=== PATIENT | male | born 1950 | race Caucasian/White ===

== ENCOUNTER 2016-05-30 11:24 | Day surgery (SDC) | payer MEDICARE ==
[~2016-05-30] VITALS: Ht 180.3 cm; Wt 90.8 kg
[2016-05-30] VITALS (8 sets, daily range): BP systolic 116–148; BP diastolic 73–84; PULSE 55–68; RESP 16–18; TEMP 97.7–98.6; O2SAT 95–99
[~2016-05-30 11:24] MED LIST: AMBI10TA PO; ASPI81 PO; ATOR40TA49 PO; CARV6.252 PO; CEFP250S PO; HYDR7.5S PO; IMDU30TA PO; LORA-392 PO; NITR0.4S SL; OMEP20CA5 PO; PRIN5TAB PO; RANO500 PO; RIVA20 PO; SPIR25TA PO
[2016-05-30] MEDS ORDERED: POVIDONE IODINE 5% (ANTISEPSIS KIT) 4 APPLICATIONS EACH NARE SCH (12:00)
[2016-05-30] MEDS ORDERED: MUPIROCIN 2% OINT 1 APPLIC/GM SYR NASAL SCH (12:00)
[2016-05-30] MEDS ORDERED: ceFAZolin 2 GM PREMIX 50 ML IV SCH (12:00)
[2016-05-30] MEDS ORDERED: CHLORHEXIDINE GLUCONATE 2 % 1 PACK (2 CLOTHS) TOPICAL SCH (12:00)
[2016-05-30] MEDS: NS 1000 ML IV SCH (12:00)
[2016-05-30] MEDS ORDERED: CHLORHEXIDINE GLUCONATE 2 % 1 PACK (2 CLOTHS) TOPICAL PRN (12:15)
[2016-05-30] MEDS ORDERED: POVIDONE IODINE 5% (ANTISEPSIS KIT) 4 APPLICATIONS EACH NARE PRN (12:15)
[2016-05-30] MEDS ORDERED: INSULIN HUMAN REGULAR 1,000 UNITS/10 ML VIAL SQ PRN (12:15)
[2016-05-30] MEDS ORDERED: METOPROLOL TARTRATE 25 MG TAB PO PRN (12:15)
[2016-05-30] MEDS ORDERED: SODIUM CHLORID 0.9% 500 ML IV PRN (12:15)
[2016-05-30] MEDS ORDERED: LACTATED RINGER'S 1000 ML IV PRN (12:15)
[2016-05-30] MEDS ORDERED: ISOS60TA PO (12:22)
[2016-05-30] MEDS ORDERED: ASPI1TAB69 PO (12:22)
[2016-05-30] MEDS ORDERED: CARV6.252 PO (12:22)
[2016-05-30] MEDS ORDERED: AMBI10TA PO (12:22)
[2016-05-30] MEDS ORDERED: NITR0.4S SL (12:22)
[2016-05-30] MEDS ORDERED: XARE20TA PO (12:22)
[2016-05-30] MEDS ORDERED: ALFU10TA2 PO (12:22)
[2016-05-30] MEDS ORDERED: ATOR1TAB18 PO (12:22)
[2016-05-30] MEDS ORDERED: LORA1TAB12 PO (12:22)
[2016-05-30] MEDS ORDERED: LISI-519 PO (12:22)
[2016-05-30] MEDS ORDERED: FINA5TAB2 PO (12:22)
[2016-05-30] MEDS ORDERED: RANO500 PO (12:22)
[2016-05-30] MEDS ORDERED: COQ-100C2 PO (12:22)
[2016-05-30] MEDS ORDERED: RAPA8CAP PO (12:22)
[2016-05-30] MEDS ORDERED: ESZO1TAB PO (12:23)
[2016-05-30 12:30] LABS: AUTOMATED NEUTROPHIL # 4.1 TH/MM3 (1.8-7.7); BASOPHIL % 0.2 % (0.0-2.0); EOSINOPHIL # 0.1 TH/MM3 (0-0.4); EOSINOPHIL % 2.2 % (0.0-4.0); HEMATOCRIT 39.3 % (39.0-51.0); HEMO FLAGS DIFF FINAL; LYMPH % 25.1 % (9.0-44.0); LYMPHOCYTE # 1.7 TH/MM3 (1.0-4.8); MEAN CELL VOLUME 94.6 FL (80.0-100.0); MEAN CORPUSCULAR HEMOGLOBIN 31.9 PG (27.0-34.0); MEAN CORPUSCULAR HGB CONC 33.7 % (32.0-36.0); MONO % 12.8 % (0.0-8.0); NEUT % 59.7 % (16.0-70.0); PLATELET COUNT 193 TH/MM3 (150-450); RED BLOOD COUNT 4.16 MIL/MM3 (4.50-5.90); RED CELL DISTRIBUTION WIDTH 12.7 % (11.6-17.2); WHITE BLOOD COUNT 6.9 TH/MM3 (4.0-11.0)
[2016-05-30 12:43] LABS: APTT (PATIENT) 25.1 SEC (24.3-30.1); PROTHROMBIN TIME - PATIENT 11.1 SEC (9.8-11.6)
[2016-05-30 12:44] LABS: BICARBONATE 25.6 MEQ/L (21.0-32.0); POTASSIUM 4.1 MEQ/L (3.5-5.1)
[2016-05-30] MEDS ORDERED: PROPOFOL 200 MG/20 ML AMP IV ONE (16:22)
[2016-05-30] MEDS ORDERED: LIDOCAINE HCL 2% 50 ML VIAL ONE (16:34)
[2016-05-30] MEDS ORDERED: ceFAZolin INJ 1,000 MG VIAL ONE (16:34)
[2016-05-30] MEDS ORDERED: VANCOMYCIN 500 MG VIAL ONE (16:34)
[2016-05-30] MEDS ORDERED: VANCOMYCIN HCL 1000 MG VIAL ONE (16:34)
[2016-05-30] MEDS ORDERED: MIDAZOLAM HCL 2 MG/2 ML VIAL ONE (16:42)
[2016-05-30] MEDS ORDERED: TEMAZEPAM 15 MG CAP PO PRN (17:45)
[2016-05-30] MEDS ORDERED: MAGNESIUM HYDROXIDE SUSP 30 ML CUP PO PRN (17:45)
[2016-05-30] MEDS ORDERED: ACETAMINOPHEN/CODEINE 300 MG/30 MG TAB PO PRN ×2 (17:45)
[2016-05-30] MEDS ORDERED: ONDANSETRON HCL 4 MG/2 ML VIAL IV PRN (17:45)
[2016-05-30] MEDS ORDERED: ESZOPICLONE 2 MG TAB PO PRN (17:45)
--- NOTE | 2016-05-30 18:26 | RADRPT ---
EXAM DATE/TIME: 05/30/2016 17:52 [place] COMPARISON: No previous studies available for comparison. INDICATIONS : Post pacemaker placement. MEDICAL HISTORY : None. SURGICAL HISTORY : None. ENCOUNTER: Initial ACUITY: 1 day PAIN SCORE: 1/10 LOCATION: Bilateral chest FINDINGS: The lungs are clear without infiltrate, nodule, or mass. There is no appreciable pleural effusion fo r technique. Heart and mediastinum are unremarkable. Left subclavian transvenous pacer wires are pre sent with tips in the right atrium and right ventricle. CONCLUSION: No acute cardiopulmonary disease. Alicia Melchor MD on May 30, 2016 at 18:24 Board Certified Radiologist. This report was verified electronically.
[2016-05-30] MEDS: ATORVASTATIN 80 MG TAB PO SCH (21:20)
[2016-05-30] MEDS: CARVEDILOL 6.25 MG TAB PO SCH (21:21)
[2016-05-30] MEDS: RANOLAZINE 500 MG EXTENDED RELEASE TAB PO SCH (21:21)
[2016-05-30] MEDS: ZOLPIDEM TARTRATE 10 MG TAB PO PRN (21:39)
[2016-05-30] MEDS: LORazepam 1 MG TAB PO PRN (21:39)
[2016-05-30] MEDS: ceFAZolin 2 GM PREMIX 50 ML IV SCH (23:24)
[2016-05-31] VITALS (17 sets, daily range): BP systolic 130–148; BP diastolic 78–90; PULSE 48–71; RESP 16–18; TEMP 98.4–98.5; O2SAT 96–97
[2016-05-31] MEDS: CARVEDILOL 6.25 MG TAB PO SCH ×2 (08:44→21:08)
[2016-05-31] MEDS: ceFAZolin 2 GM PREMIX 50 ML IV SCH ×2 (08:46→16:00)
[2016-05-31] MEDS ORDERED: ASPIRIN EC 81 MG TABEC PO SCH (09:00)
[2016-05-31] MEDS ORDERED: LISINOPRIL 5 MG TAB PO SCH (09:00)
[2016-05-31] MEDS: RANOLAZINE 500 MG EXTENDED RELEASE TAB PO SCH ×2 (09:00→21:08)
[2016-05-31] MEDS ORDERED: NON-FORMULARY DRUG (Coenzyme Q10 (Ubidecarenone) (Coq-10) 100 MG) PO SCH (09:00)
[2016-05-31] MEDS ORDERED: ISOSORBIDE MONONITRATE 60 MG TAB PO SCH (09:00)
[2016-05-31] MEDS ORDERED: FINASTERIDE 5 MG TAB PO SCH (09:00)
[2016-05-31] MEDS ORDERED: TAMSULOSIN HCL 0.4 MG CAP PO SCH (09:00)
[2016-05-31] MEDS ORDERED: NON-FORMULARY DRUG (Silodosin (Rapaflo) 8 MG) PO SCH (09:00)
[2016-05-31] MEDS ORDERED: RIVAROXABAN 20 MG TAB PO SCH (09:00)
--- NOTE | 2016-05-31 10:39 | EKG ---
Date Performed: 05/30/2016 Time Performed: 17:48:32 PTAGE: 65 years EKG: Sinus bradycardia. Left axis deviation IV conduction defect Anteroseptal infarct - age unde termined Low QRS voltages in precordial leads Abnormal ECG Compared to prior tracing no significant c jackelin PREVIOUS TRACING : 05/30/2016 12.27 DOCTOR: Roseline Lam Interpretating Date/Time 05/31/2016 10:33:57
--- NOTE | 2016-05-31 10:39 | EKG ---
Date Performed: 05/30/2016 Time Performed: 12:27:30 PTAGE: 65 years EKG: Sinus bradycardia. Left axis deviation IV conduction defect Anteroseptal infarct - age unde termined Low QRS voltages in precordial leads Abnormal ECG Compared to prior tracing no significant c jackelin PREVIOUS TRACING : 07/23/2013 08.24 DOCTOR: Roseline Lam Interpretating Date/Time 05/31/2016 10:33:49
--- NOTE | 2016-05-31 10:40 | EKG ---
Date Performed: 05/31/2016 Time Performed: 05:36:26 PTAGE: 65 years EKG: Sinus bradycardia with borderline 1st degree A-V block Left axis deviation IV conduction de fect Possible septal infarct - age undetermined Low QRS voltages in precordial leads Abnormal ECG Com pared to prior tracing no significant change PREVIOUS TRACING DOCTOR: Roseline Lam Interpretating Date/Time 05/31/2016 10:34:08
[2016-05-31] MEDS: NS 1000 ML IV SCH (12:00)
[2016-05-31] MEDS: LORazepam 1 MG TAB PO PRN (13:53)
--- NOTE | 2016-05-31 14:27 | HHI.PR ---
Subjective Remarks Feeling ok need to sleep Objective Vital Signs Date Time Temp Pulse Resp B/P Pulse Ox O2 Delivery O2 Flow Rate FiO2 05/31/16 13:00 58 05/31/16 12:00 60 05/31/16 11:00 62 05/31/16 10:00 64 05/31/16 09:00 62 05/31/16 08:00 54 05/31/16 07:30 98.5 55 18 140/78 96 05/31/16 07:00 48 05/31/16 06:34 71 05/31/16 05:10 48 05/31/16 04:16 53 05/31/16 03:30 98.4 52 16 148/90 97 05/31/16 03:03 56 05/31/16 02:17 57 05/31/16 01:05 63 05/31/16 01:00 98 Room Air 05/31/16 00:52 58 05/30/16 23:12 56 05/30/16 23:00 98.6 68 16 128/73 98 05/30/16 23:00 98 Nasal Cannula 1.50 05/30/16 22:00 56 05/30/16 21:00 58 05/30/16 20:00 55 05/30/16 19:31 99 Nasal Cannula 2.00 05/30/16 19:30 98 Nasal Cannula 1.50 05/30/16 19:30 97.7 56 16 116/84 98 I/O 05/30/16 05/30/16 05/30/16 05/31/16 05/31/16 05/31/16 07:00 15:00 23:00 07:00 15:00 23:00 Intake Total 290 ml Output Total 550 ml Balance -260 ml Intake Oral 240 ml IV Total 50 ml Output Urine Total 550 ml # Bowel Movements 0 Result Diagram: 05/30/16 1207 05/30/16 1207 Imaging Alert, fully oriented Lungs: ventilated Heart: S1, S2 regular, no gallop Left infraclavicular area with clean surgical wound Abdomen: soft, no mass ext: no edema Last Impressions Chest X-Ray 05/30/16 0000 Signed Impressions: Service Date/Time: Monday, May 30, 2016 17:52 - CONCLUSION: No acute cardiopulmonary disease. K. Manuel Melchor MD Current Medications Medications (Trade) Dose Ordered Sig/Satish Route Start Time Stop Time Status Last Admin Sodium Chloride 1,000 ml @ 30 mls/hr Q24H IV 05/30/16 12:00 Lactated Ringer's 1,000 ml @ 0 mls/hr Q0M PRN IV 05/30/16 12:15 06/02/16 12:14 Sodium Chloride 500 ml @ 30 mls/hr [id number] PRN IV 05/30/16 12:15 06/02/16 12:14 (Ancef 2 Gm Premix) 50 ml @ 100 mls/hr Q8H IV 05/31/16 00:00 05/31/16 16:29 05/31/16 08:46 (Restoril) 15 mg HS PRN PO 05/30/16 17:45 (Milk Of Magnesia Liq) 30 ml Q6H PRN PO 05/30/16 17:45 (Zofran Inj) 4 mg Q4H PRN IV 05/30/16 17:45 (Tylenol-Codeine #3) 1 tab Q4H PRN PO 05/30/16 17:45 (Tylenol-Codeine #3) 2 tab Q4H PRN PO 05/30/16 17:45 (Ecotrin Ec) 81 mg DAILY PO 05/31/16 09:00 05/31/16 08:44 (Lipitor) 80 mg HS PO 05/30/16 21:00 05/30/16 21:20 (Coreg) 6.25 mg BID PO 05/30/16 21:00 05/31/16 08:44 (Lunesta) 2 mg HS PRN PO 05/30/16 17:45 (Proscar) 5 mg DAILY PO 05/31/16 09:00 05/31/16 08:44 (Imdur) 60 mg DAILY PO 05/31/16 09:00 05/31/16 08:44 (Prinivil) 5 mg DAILY PO 05/31/16 09:00 05/31/16 08:45 (Ativan) 1 mg Q6H PRN PO 05/30/16 17:45 05/31/16 13:53 (Ranexa) 500 mg BID PO 05/30/16 21:00 05/31/16 09:00 (Xarelto) 20 mg DAILY PO 05/31/16 09:00 05/31/16 08:44 (Ambien) 5 mg HS PRN PO 05/30/16 17:45 (Flomax) 0.4 mg DAILY PO 05/31/16 09:00 05/31/16 08:44 Assessment and Plan Problem List: (1) CHF (congestive heart failure) Status: Acute Plan: Doing well. EF 45% (2) Cardiac defibrillator in situ Status: Acute Plan: SP ICD lead placement and device testing. Lead well functioning Clean surgical wound Will be DH Patient wants to have some sleep before going home Usually he sleeps during the day Abdulaziz Bonner MD May 31, 2016 14:27
[2016-05-31] MEDS ORDERED: ACET300T2 PO (14:31)
[2016-05-31] MEDS ORDERED: CEPH-460 PO (14:31)
[2016-05-31] MEDS: ZOLPIDEM TARTRATE 10 MG TAB PO PRN (16:06)
[2016-05-31] MEDS: ATORVASTATIN 80 MG TAB PO SCH (21:08)
--- NOTE | 2016-06-01 15:00 | MP ---
cc: JG FARAH M.D., HANSCY M.D. DATE OF SURGERY 05/30/2016 PROCEDURE PERFORMED 1. Defibrillator removal. 2. New right ventricular defibrillatory lead insertion. 3. Device testing. 4. Pocket revision. INDICATIONS FOR PROCEDURE Ms. Crawford is a 65-year-old gentleman with coronary artery disease, previous defibrillator implanted over 9 years ago. The gentleman has noise in the right ventricular defibrillatory lead. Ejection fraction is around 40-45%; that was in October of 2015, to will undergo new lead placement and pocket revision. The risks, the nature and the benefit of the procedure are clearly stated to him. The risks include pneumothorax, cardiac perforation, stroke and even . He understood and agreed to proceed. PROCEDURE After written informed consent was obtained, the patient was brought to the EP Lab where he was prepped and draped in the usual sterile fashion. Conscious sedation was initiated and maintained throughout the procedure by the anesthesiologist. Once sedation was verified, the left infraclavicular area over the existing generator was anesthetized with 2% Xylocaine. Using the #11 scalpel, a 3-cm incision was made over the existing generator. Dissection was then taken down to the deep fascial layer using Bovie cautery and blunt dissection. Once exposed, generator was removed from the pocket, scar tissue was removed from around the lead. The pocket was expanded. Then, using modified Seldinger technique, the left subclavian vein was cannulated on one occasion. One guidewire was advanced. A 2-0 Vicryl suture was placed around the wire to prevent back-bleeding. At this point, over the wire a 9-Moroccan dilator and introducer was advanced. As the dilator and wire were removed, an active fixation right ventricular pacing/sensing/defibrillatory lead was advanced. After adequate pacing and adequate thresholds obtained, the lead was secured in the pocket with #2 Ethibond suture. Then the pocket was copiously irrigated with antibiotic solution. The leads were connected to the generator and placed into the pocket. The existing RV defibrillatory lead was unscrewed. The yoke of the lead was cut and the lead was capped and left into the pocket. I did proceed with wound device testing. Initial induction consisted of T-wave shock which induced ventricular fibrillation which was adequately detected and treated by the IC generator, delivering a 20-joule defibrillatory shock which failed to convert the patient. The patient was converted by a 25-joule defibrillatory shock that converted the patient into sinus rhythm. Shocking impedance 65 ohms, charge time 5.2 seconds. At that point NIPS was complete. I did proceed with wound closure. The deep fascial layer was approximated with #2-0 Vicryl suture in a continuous fashion. The subcutaneous layer was approximated using #2-0 Vicryl suture in a continuous fashion. The subcuticular layer was approximated using #2-0 Vicryl suture in a continuous fashion. Dermabond adhesive was applied to the wound followed by a sterile pressure dressing. There was no complication. The patient tolerated the procedure. Blood loss minimal. 1. EXPLANTED HARDWARE: The explanted defibrillator is a [employer] model number [id number], serial number [id number]. The right ventricular pacing/sensing/defibrillatory lead is a [employer] model number 186503, serial number [id number]. 2. IMPLANTED HARDWARE: The implanted defibrillator right ventricular pacing/sensing/defibrillatory lead is a [employer] model number 938344, serial number [id number]. 3. THRESHOLDS: The right ventricle pacing threshold in the bipolar mode was 1 volt at 0.5 milliseconds, lead impedance 900 ohms, R-wave at 16 mV. The right ventricle defibrillatory threshold less than or equal to 25 joules, shocking impedance 65 ohms, charge time 5.2-seconds. 4. SETTINGS: The device in VVI 40. Defibrillatory portion for two zones, one zone for ventricular tachycardia between 170 and 260 beats per minute. Initial therapy consists of 1 burst of ATP, one ramp, 81%, 10 pause, 70-second decremental followed by 25, and also subsequent shocks at 35 defibrillatory shock. The second zone set for ventricular fibrillation above 250 beats per minute, first therapy at 25 and all subsequent shocks at 35 defibrillatory shock. CONCLUSION Successful defibrillator removal and replacement. Successful pocket revision. Successful new defibrillator insertion and device testing, RECOMMENDATIONS The patient is going to be transferred to the telemetry unit. He will be observed and when stable can be discharged home. Abdulaziz Bonner MD HS/SSB /6:13 PM /2:35 PM
== END 2016-05-31 21:30 | disposition home or self-care (01) ==
LOC: HDIC 11:24 → HCAT 11:24 → HCIN 19:30 → HCAT 19:30 → HDIC 19:30 → HCAT 05-31 21:30
PROVIDERS: ATTEND Internal Medicine Interventional Cardiology
DX: T82.190A Other mechanical complication of cardiac electrode, initial encounter (principal); I11.0 Hypertensive heart disease with heart failure; I50.9 Heart failure, unspecified; I25.10 Atherosclerotic heart disease of native coronary artery without angina pectoris
CPT/HCPCS: 00530; 33216; 71010; 80048; 85025; 85610; 85730; 86850; 86900; 86901; 93005; 93641; C1777; J0690; J2250; J3370